=== PATIENT | female | born 1990 | race Caucasian/White ===

== ENCOUNTER → 2018-11-24 | Outpatient (CLI) | payer OTHER, SELFPAY ==
[2018-11-24 16:23] LABS: CRP < 2.90 mg/L (0.0-3.0)
[2018-11-27 16:07] LABS: Endomysial Antibody IgA Negative (Negative); Immunoglobulin A 68 mg/dL (87-352)
[2018-11-28 11:43] LABS: t-Transglutaminase IgA <2 U/mL (0-3)
== END | disposition home or self-care (01) ==
LOC: MTLAB 14:07
PROVIDERS: Family Provider Family Medicine; PCP Family Medicine; Referring Provider Internal Medicine Gastroenterology; Visit Provider Internal Medicine Gastroenterology
DX: R19.7 Diarrhea, unspecified (principal)
CPT/HCPCS: 36415; 82784; 83516; 86140; 86255

== ENCOUNTER → 2018-12-04 | Outpatient (CLI) | payer OTHER, SELFPAY | END | disposition home or self-care (01) | PROVIDERS: Family Provider Family Medicine; PCP Family Medicine; Referring Provider Internal Medicine Gastroenterology; Visit Provider Internal Medicine Gastroenterology | DX: R19.7 Diarrhea, unspecified (principal); R10.9 Unspecified abdominal pain | CPT/HCPCS: 36415 ==

== ENCOUNTER → 2020-02-16 15:51 | Outpatient (CLI) | payer OTHER, SELFPAY ==
--- NOTE | 2020-02-16 15:56 | US_ITS ---
STUDY: ULTRASOUND OF THE FEMALE PELVIS - COMPLETE REASON FOR EXAM: Female, 29 years old. PAIN DURING OVULATION BILAT LMP: 01/31/2020 TECHNIQUE: Transvaginal TECHNICAL QUALITY: Adequate. COMPARISON: None. FINDINGS: The uterus is anteverted and is in a midline position. The uterus measures 8.8 x 5.9 x 4.2 cm. Normal uterine cervix. The endometrium measures 10 mm in thickness, and is hyperechoic. There is no demonstrated endometrial mass. There is no demonstrated myometrial mass. I.U.D. - The patient does not have an I.U.D. The right ovary is visualized. The right ovary measures 3.3 x 3.2 x 2.2 cm. There is no right ovarian cyst or ovarian mass. There is no visualized right adnexal mass or complex lesion. There is normal arterial and normal venous vascularity. The left ovary is visualized. The left ovary measures 3.1 x 2.3 x 2.0 cm. There is no left ovarian cyst or ovarian mass. There is no visualized left adnexal mass or complex lesion. There is normal arterial and normal venous vascularity. There is minimal fluid in the cul-de-sac. The pre void volume of the bladder was ml. The post void volume of the bladder was ml. Polycystic ovary disease: No. US/Transvaginal Non- IMPRESSION: Normal female pelvis. Electronically Signed: Chris Montero MD at 17:12 EDT Tel , Service support ,
== END ==
PROVIDERS: PCP Family Medicine
DX: N94.0 Mittelschmerz (principal)
CPT/HCPCS: 76830

== ENCOUNTER → 2022-01-29 | Outpatient (CLI) | payer OTHER, SELFPAY ==
[2022-01-29 18:21] LABS: Anion Gap 4 (5-15); BUN 13 mg/dL (7-18); BUN/Creat Ratio 15.8 RATIO (10-20); Chloride 108 mmol/L (98-107); Cholesterol 137 mg/dL (200); Creatinine, Serum 0.82 mg/dL (0.55-1.02); EST Glomerular Filtration Rate 85 mL/min (>60); Est Glom Filt Rate - Afr Amer 103 mL/min (>60); Glucose 98 mg/dL (74-106); High Density Lipoprotein 61 mg/dL; Potassium 3.9 mmol/L (3.5-5.1); Sodium Level 139 mmol/L (136-145); Triglycerides 90 mg/dL; Very Low Density Lipoprotein 18 mg/dL (5-40)
== END | disposition home or self-care (01) ==
LOC: MFPLAB 14:37
PROVIDERS: PCP Family Medicine; Visit Provider Family Medicine
DX: Z00.00 Encounter for general adult medical examination without abnormal findings (principal)
CPT/HCPCS: 36415; 80048; 80061

== ENCOUNTER → 2022-09-17 | Outpatient (CLI) | payer OTHER, SELFPAY ==
[2022-09-17 17:57] LABS: Absolute Lymphocyte Count 1.75 X10^3/uL (0.83-4.51); Basophil# 0.03 X10^3/uL; Basophil% 0.6 % (0-1); Eosinophil# 0.04 X10^3/uL; Eosinophils% 0.8 % (0-5); Hematocrit 40.7 % (37-47); Hemoglobin 14.2 g/dL (12.0-15.0); Lymphocyte # 1.75 X10^3/ul (0.83-4.51); Lymphocyte % 33.7 % (19-41); Mean Corp Hgb Conc 34.9 g/dL (32-36); Mean Corpuscular Hgb 31.8 pg (27.0-32.0); Mean Corpuscular Volume 91.1 fL (81-99); Mean Platelet Vol. 10.8 fl (6.2-12.0); Monocyte% 7.7 % (0-10); NRBC Flagged by Analyzer 0 % (0-5); Neutrophil # 2.97 X10^3/uL (2.7-7.7); Platelet Count 244 K/mm3 (150-450); RBC Distribution Width CV 11.9 % (11.6-14.6); RBC Distribution Width SD 39.4 fl (35.1-43.9); Red Blood Count 4.47 M/mm3 (4.2-5.4); White Blood Count 5.2 K/mm3 (4.4-11.0)
[2022-09-17 18:21] LABS: Anion Gap 5 (5-15); BUN 11 mg/dL (7-18); BUN/Creat Ratio 15.4 RATIO (10-20); Chloride 107 mmol/L (98-107); Creatinine, Serum 0.71 mg/dL (0.55-1.02); EST Glomerular Filtration Rate 100 mL/min (>60); Est Glom Filt Rate - Afr Amer 121 mL/min (>60); Glucose 97 mg/dL (74-106); Potassium 3.7 mmol/L (3.5-5.1); Sodium Level 138 mmol/L (136-145)
== END | disposition home or self-care (01) ==
LOC: MFPLAB 16:56
PROVIDERS: PCP Family Medicine; Visit Provider Family Medicine
DX: R20.0 Anesthesia of skin (principal); R20.2 Paresthesia of skin
CPT/HCPCS: 36415; 80048; 85025

== ENCOUNTER 2023-06-25 15:00 | Outpatient (RCR) | payer OTHER, SELFPAY ==
--- NOTE | 2023-04-23 17:48 | HP.PTEVAL_ITS ---
Patient's Visit Information Visit Information Visit Information: NEDRA MAJANO is a 32 year old F referred to Physical Therapy by Dr. Quinn Melton MD with a diagnosis of L biceps tendonitis.. Date of Evaluation: 04/23/23 Physical Therapist: Ivan Monique, DPT, OCS, CSCS Visit Plan Frequency: 1-2x /Week Duration: 4-6 Weeks Plan: weekly to 2x/week as needed for 4-6 for activity modficaiton education and strength of scap and RC, consider increased frequency for US and manual if not improving. next session: prone scap stabs and elevation ex if doing well with phase 3 OTB and hammer theory. Subjective Subjective: L shoulder hurting for a number of months since end of December. No moment of injury. January weighted flyes bothered it. Really bad for a while and could not sleep on L side but that got better. Is L handed. Workout lifting bothers it or carrying heavy things can cause pain. has dtr who might swing arm and hurt it. Anterior L shoulder hurts Doesn't bother her if she does not move it. Lifting heavy hurts. Not up at night anymore. 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 Not really bothersome at work. Hobbies running and hiking, not a problem. Avoids weight lfiting due to shoulder pain , avoids yoga. Pain L shoulder: Pain Intensity (Out of 10): 3 Pain Intensity Range: 0 and 4 Comment: down dog hurt. Objective Objective: l shoulder tenderness at biceps tendon adn supraspinatus tendon mildly. Mild forward protracted scap posture. cervical and scapular AROM is full and painfree as is elbow and wrist on both sides. R shoulder moves well without pain. L shoulder has some mild discomfort transiently at end range of flexion, er. strength is 4- in rotation of B shoulder and elevation with pain with resisted flexion L and ext rotation L. Biceps slight pain to contract L. reflexes 2/3 bi and tri B. Sensation WNL to gross lgiht touch. - ext rotation lag test, - drop arm test, - labral tests, - sulcus tests. Balance/Special Test Scores Quick DASH Score: 6.8175 Goals Goal 1:: Full aROM and flexion, er resistance without pain L shoulder Goal Time Frame: 4-6 Weeks Goal 2:: I appropriate HEP to limit future problems Goal Time Frame: 4-6 Weeks Goal 3:: 5 days without noticing pain in L shoulder Goal Time Frame: 4-6 Weeks Goal 4:: qucikdash score 11 Goal Time Frame: 4-6 Weeks Goal 5:: Pt report 99% back to normal Goal Time Frame: 4-6 Weeks Rehabilitation Potential Physical Therapy Diagnosis: L shoulder pain limiting funciton likely due to impingement tendonitis Rehabilitation Potential: Good Anticipated Interventions Patient/Client Instruction: Educate patient on: Condition and Plan of Care For the Purpose of:: To decrease pain, To improve nutrient delivery to tissue, To improve muscle performance and motor function, To increase tolerance to activity/condition/position and To improve ability of physical actions for home/community/work/leisure Therapeutic Exercise to Include: Strength training, Postural training, Flexibilty training, Passive ROM and Scapular Strength/Stabilization For the Purpose of:: To decrease pain, To increase ROM, To improve nutrient delivery to tissue, To improve muscle performance and motor function, To increase tolerance to activity/condition/position and To improve ability of physical actions for home/community/work/leisure Manual Therapy Techniques to Include: Mobilization, Passive ROM and Soft tissue mobilization For the Purpose of:: To increase ROM, To improve nutrient delivery to tissue and To improve muscle performance and motor function Cryotherapy (ice pack, ice massage): Yes Ultrasound (thermal/non thermal): Yes (nonthermal as needed.) For the Purpose of:: To decrease pain and To decrease swelling/inflammation Text: Thank you for the opportunity to evaluate your patient. For Medicare and Medicare HMO plans, please review the plan of care and approve it. It will need to be FAXED BACK to us at [phone] for Medicare purposes. For Medicare only, by signing this I certify the plan of care. Please let me know if there are questions or concerns regarding this plan of care. Physician Signature: Date:
--- NOTE | 2023-06-25 15:44 | HP.PTDCSUM ---
Discharge Summary D/C summary: It has been my pleasure to treat NEDRA MAJANO referred by Dr. Quinn Melton MD, with the diagnosis of L biceps tendonitis. for a total of 5 visit(s). Discharge Date: 06/25/23 Please see the following information for a summary of their discharge status. Subjective Subjective: Doing well took a week for pain to go away after plyo pushups but getting back there now and progressing db exercises slower. Not much pain lately. Pain L shoulder: Pain Intensity (Out of 10): 0 Overall Improvement % Improvement: 85 Objective Objective/Function: Full aROM B shoulders, still some mild tenderness L supraspinatus but much better. No pain with AROM. strength is symmetrical in neutral position, slightly painful after a few attempts with er but otherwise er, ir, flex, abd are all OK Goals Goal 1:: Full aROM and flexion, er resistance without pain L shoulder Goal Progress: Goal Met Goal 2:: I appropriate HEP to limit future problems Goal Progress: Goal Met Goal 3:: 5 days without noticing pain in L shoulder Goal Progress: Progressing Goal 4:: qucikdash score 11 Goal Progress: Goal Met Goal 5:: Pt report 99% back to normal Goal Progress: Progressing Plan Plan: d/c to HEP D/C Information Discharge Comments: Pt to continue via HEP. d/c sentence: If there are questions or concerns regarding this patient's physical therapy, please feel free to call me at [phone]. Thank you for the referral of this patient. Sincerely, Ivan Monique, DPT, OCS, CSCS Balance/Gait/Functional tests Balance/Special Test Scores Quick DASH Score: 6.8175 Improvement % Improvement: 85
== END 2023-06-25 19:00 | disposition home or self-care (01) ==
LOC: PT 15:00
PROVIDERS: PCP Family Medicine; Referring Provider Family Medicine; Visit Provider Family Medicine
DX: M75.22 Bicipital tendinitis, left shoulder (principal)
CPT/HCPCS: 97110; 97161; 97164

== ENCOUNTER → 2025-02-12 | Outpatient (CLI) | payer OTHER, SELFPAY ==
--- OUTSIDE RECORDS SUMMARY | 2025-02-12 06:06 | XMS RPT_ITS | CCD ---
Author Organization [facility] CliniSyva Care Team Providers Care Solar Panel Installation Supervisor Name Role Phone DODIE DESOUZA A Unavailable Unavailable MENDOZA, QUINN Harris Unavailable Unavailable DESOUZA, DODIE A Unavailable Unavailable MENDOZA, QUINN Harris Unavailable Unavailable DESOUZA, DODIE A Unavailable Unavailable MENDOZA, QUINN Harris Unavailable Unavailable DESOUZA, DODIE A Unavailable Unavailable MENDZOA, QUINN Harris Unavailable Unavailable DESOUZA, DODIE A Unavailable Unavailable MENDOZA, QUINN Harris Unavailable Unavailable LYLY, DODIE A Unavailable Unavailable MENDOZA, QUINN Harris Unavailable Unavailable DODIE DESOUZA A Unavailable Unavailable Mendoza, Quinn Attending Unavailable Mendoza, Quinn Primary Care Unavailable Mendoza, Quinn Referring Unavailable Mendoza, Quinn Attending Unavailable Mendoza, Quinn Primary Care Unavailable MAICO GREEN Attending Unavailable MAICO GREEN Primary Care Unavailable MAICO GREEN Admitting Unavailable REJI AGUIRRE, DR QUINN Santillan Primary Care Physician [phone] REJI AGUIRRE, DR QUINN Santillan Primary Care Unavailkevin LECHUGA APRN-CARLA HOLT Attending Ale cruz Allergies Allergy Classification Reported Allergen(s) Allergy Type Date of Onset Reaction(s) Facility (1 source) Doxycycline; Translations: [doxycycline] Drug Allergy [facility] Medications Current Medications Medication Drug Class(es) Dates Sig (Normalized) Sig (Original) ibuprofen 600 mg oral tablet (1 source) Nonsteroidal Anti-inflammatory Drug Start: 05-30-2018 ibuprofen 600 mg oral tablet Dose : 600 mg = 1 tab(s), Oral, q6h, 0 Refill(s) Start Date: 05/30/18 Status: Ordered Repeat number: 1 [facility] (1 source) Start: 05-30-2018 [facility] 7 = gram(s) Apply 1 EA, Topical, AsDirected, PRN Other (see order comments), 0 Refill(s), Ointment Start Date: 05/30/18 Status: Ordered Repeat number: 1 Multivitamins (1 source) Start: 05-25-2016 Multivitamins Oral, qDay, 0 Refill(s) Start Date: 05/25/16 Status: Ordered Repeat number: 1 Problems Active Problems Problem Classification Problem Date Documented Da te Episodic/Chronic Unclassified (1 source) Breast feeding (infant) (observable entity) 05-24-2016 Comment on above: System added from do cumentation. Breast feeding Status documented as Yes on Admission Past or Other Problems Problem Classification Problem Date Documented Da te Episodic/Chronic Other nervous system disorders (1 source) Anesthesia of skin; Translations: [Anesthesia of skin] Onset: 09-21-2022 Episodic Results Test Name Value Interpretation Reference Range Facility MA MAMMOGRAM SCREENING BILAT ERAL W/TOMOon 12-24-2024 MA MAMMOGRAM SCREENING BILATERAL W/RAHEEL ORIGINAL FROM: [place] [id number] PROCEDURE FOR: NEDRA MAJANO [address] [place] [address] Home: PID#: [id number] Exam#: [id number] : 1990 Age: 34 TO: CARLA [place] [address] EXAMINATION: SCREENING DIGITAL BILATERAL MAMMOGRAM WITH TOMOSYNTHESIS, 12/24/2024 10:24 am TECHNIQUE: Screening mammography of the bilateral breasts was performed with tomosynthesis. 2D standard and 3D tomosynthesis combination imaging performed through both breasts in the MLO and CC projection. Computer aided detection was utilized in the interpretation of this exam. COMPARISON: Baseline. HISTORY: Baseline breast cancer screening. FINDINGS: BREAST DENSITY: The breasts are extremely dense, which lowers the sensitivity of mammography. There are no significant masses or calcifications. IMPRESSION: No mammographic evidence of malignancy. Return to annual screening mammography is recommended.. Nuvia Najera risk calculations, generated with the history provided, report this patient's 10 year risk and lifetime risk for developing breast cancer at 2.0% and 25.6%, respectively. Based on this assessment tool, if the patient's calculated lifetime risk is below 20%, then the patient is considered at average risk for developing breast cancer. If the patient's calculated lifetime risk is at or above 20%, then the patient is considered high risk for developing breast cancer and may be a candidate for supplemental breast MRI screening in addition to annual mammographic screening per the [place] [employer]. I have personally reviewed the images of this examination and agree with the resident's findings and interpretation. BIRADS: BI-RADS: 1: Negative RECALL: 1 year screening RECALL TYPE: mammo LETTER SENT: Normal BI-RADS 1 and 2 Interpreted by: Li Shepherd Preliminary Report By: Jean Mock Electronically signed By Li Shepherd Dictated Date: 12/24/2024 11:08:11 AM Prelim Date: 12/24/2024 5:02:05 PM Sign Date: 12/24/2024 5:02:05 PM Ordering Provider: CARLA LECHUGA Interpreted by: Li Shepherd Preliminary Report By: Jean Mock Electronically signed By Li Shepherd Dictated Date: 12/24/2024 11:08:11 AM Prelim Date: 12/24/2024 5:02:05 PM Sign Date: 12/24/2024 5:02:05 PM Ordering Provider: CARLA LECHUGA Air Traffic Systems Technician: MEEK FARMER RT (R, CT), [facility] letter sent: Normal BI-RADS 1 and 2 Mammogram BI-RADS: 1 Negative Normal [facility] Inital Evaluation (1) - [facility] 04-23-2023 Inital Evaluation (1) - PT [facility] Physical Therapy [facility] [place] [address] / REHABILITATION SERVICES INITIAL EVALUATION MR#: [id number] Acct: [id number] Name: NEDRA MAJANO Rep #: [id number] : 1990 32 From: Jeni Monique DPT, OCS, CSCS Referring Dr.: Dr. Quinn Mendoza MD Status: REG RCR Insurance: [facility] SELF PAY INSURANCE Patient's Visit Information Visit Information Visit Information: NEDRA MAJANO is a 32 year old F referred to Physical Therapy by Dr. Quinn Mendoza MD with a diagnosis of L biceps tendonitis.. Date of Evaluation: 04/23/23 Physical Therapist: Jeni Monique, MINAT, OCS, CSCS Visit Plan Frequency: 1-2x /Week Duration: 4-6 Weeks Plan: weekly to 2x/week as needed for 4-6 for activity modficaiton education and strength of scap and RC, consider increased frequency for US and manual if not improving. next session: prone scap stabs and elevation ex if doing well with phase 3 OTB and hammer theory. Subjective Subjective: L shoulder hurting for a number of months since end of December. No moment of injury. January weighted flyes bothered it. Really bad for a while and could not sleep on L side but that got better. Is L handed. Workout lifting bothers it or carrying heavy things can cause pain. has dtr who might swing arm and hurt it. Anterior L shoulder hurts Doesn't bother her if she does not move it. Lifting heavy hurts. Not up at night anymore. 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 Not really bothersome at work. Hobbies running and hiking, not a problem. Avoids weight lfiting due to shoulder pain , avoids yoga. Pain L shoulder: Pain Intensity (Out of 10): 3 Pain Intensity Range: 0 and 4 Comment: down dog hurt. Objective Objective: l shoulder tenderness at biceps tendon adn supraspinatus tendon mildly. Mild forward protracted scap posture. cervical and scapular AROM is full and painfree as is elbow and wrist on both sides. R shoulder moves well without pain. L shoulder has some mild discomfort transiently at end range of flexion, er. strength is 4- in rotation of B shoulder and elevation with pain with resisted flexion L and ext rotation L. Biceps slight pain to contract L. reflexes 2/3 bi and tri B. Sensation WNL to gross lgiht touch. - ext rotation lag test, - drop arm test, - labral tests, - sulcus tests. Balance/Special Test Scores Quick DASH Score: 6.8175 Goals Goal 1:: Full aROM and flexion, er resistance without pain L shoulder Goal Time Frame: 4-6 Weeks Goal 2:: I appropriate HEP to limit future problems Goal Time Frame: 4-6 Weeks Goal 3:: 5 days without noticing pain in L shoulder Goal Time Frame: 4-6 Weeks Goal 4:: qucikdash score 11 Goal Time Frame: 4-6 Weeks Goal 5:: Pt report 99% back to normal Goal Time Frame: 4-6 Weeks Rehabilitation Potential Physical Therapy Diagnosis: L shoulder pain limiting funciton likely due to impingement tendonitis Rehabilitation Potential: Good Anticipated Interventions Patient/Client Instruction: Educate patient on: Condition and Plan of Care For the Purpose of:: To decrease pain, To improve nutrient delivery to tissue, To improve muscle performance and motor function, To increase tolerance to activity/condition/p osition and To improve ability of physical actions for home/community/work/ leisure Therapeutic Exercise to Include: Strength training, Postural training, Flexibilty training, Passive ROM and Scapular Strength/Stabilizati on For the Purpose of:: To decrease pain, To increase ROM, To improve nutrient delivery to tissue, To improve muscle performance and motor function, To increase tolerance to activity/condition/p osition and To improve ability of physical actions for home/community/work/ leisure Manual Therapy Techniques to Include: Mobilization, Passive ROM and Soft tissue mobilization For the Purpose of:: To increase ROM, To improve nutrient delivery to tissue and To improve muscle performance and motor function Cryotherapy (ice pack, ice massage): Yes Ultrasound (thermal/non thermal): Yes (nonthermal as needed.) For the Purpose of:: To decrease pain and To decrease swelling/inflammatio n Text: Thank you for the opportunity to evaluate your patient. For Medicare and Medicare HMO plans, please review the plan of care and approve it. It will need to be FAXED BACK to us at [phone] for Medicare purposes. For Medicare only, by signing this I certify the plan of care. Please let me know if there are questions or concerns regarding this plan of care. Physician Signature: D ate: 04/23/23 1748 CC: Dr. Quinn Mendoza MD EBG Signed Normal [facility] Basic Metabolic Profile (BMP )on 09-17-2022 BUN/CRE 15.4 RATIO Normal 10-20 [facility] Comment on above: Performed By: #### L 100.0100, L500.2500 #### [facility] [address] [place], [address] CA,Total 9.0 mg/dL Normal 8.5-10.1 [facility] Comment on above: Performed By: #### L 100.0100, L500.2500 #### [facility] [address] [place], [address] Chloride [Moles/Vol] 107 mmol/L Normal 98-107 [facility] Comment on above: Performed By: #### L 100.0100, L500.2500 #### [facility] [address] [place], [address] CO2 [Moles/Vol] 26.0 mmol/L Normal 21.0-32.0 [facility] Comment on above: Performed By: #### L 100.0100, L500.2500 #### [facility] [address] [place], [address] Creatinine [Mass/Vol] 0.71 mg/dL Normal 0.55-1.02 [facility] Comment on above: Result Comment: The validity of the calculated GFR GFRAA in patients over 70 years has not been determined. Clinical correlation is essential. Performed By: #### L 100.0100, L500.2500 #### [facility] [address] [place], [address] EST GFR - AA 121 mL/min Normal >60 [facility] Comment on above: Result Comment: Afri can [place] GFR Calc Performed By: #### L 100.0100, L500.2500 #### [facility] [address] [place], [address] GAP 5 Normal 5-15 [facility] Comment on above: Performed By: #### L 100.0100, L500.2500 #### [facility] [address] [place], [address] GFR/1.73 sq M.predicted among non-blacks MDRD (S/P/Bld) [Vol rate/Area] 100 mL/min/{1.73_m2} Normal >60 [facility] Comment on above: Result Comment: Non- GFR Calc Performed By: #### L 100.0100, L500.2500 #### [facility] [address] [place], [address] Glucose [Mass/Vol] 97 mg/dL Normal 74-106 [facility] Comment on above: Performed By: #### L 100.0100, L500.2500 #### [facility] [address] [place], [address] Potassium [Moles/Vol] 3.7 mmol/L Normal 3.5-5.1 [facility] Comment on above: Performed By: #### L 100.0100, L500.2500 #### [facility] [address] [place], [address] Sodium [Moles/Vol] 138 mmol/L Normal 136-145 [facility] Comment on above: Performed By: #### L 100.0100, L500.2500 #### [facility] [address] [place], [address] Urea nitrogen [Mass/Vol] 11 mg/dL Normal 7-18 [facility] Comment on above: Performed By: #### L 100.0100, L500.2500 #### [facility] [address] [place], [address] CBC W/Diff, Automatedon 03- Absolute Lymph 1.75 X10 3/uL Normal 0.83-4.51 [facility] Comment on above: Performed By: #### L 100.0100, L500.2500 #### [facility] [address] [place], [address] Absolute Neut 3.0 X10 3/uL Normal 2.0-7.7 [facility] Comment on above: Performed By: #### L 100.0100, L500.2500 #### [facility] [address] [place], [address] Basophils/100 WBC (Bld) 0.6 % Normal 0-1 [facility] Comment on above: Performed By: #### L 100.0100, L500.2500 #### [facility] [address] [place], [address] Eosinophils/100 WBC (Bld) 0.8 % Normal 0-5 [facility] Comment on above: Performed By: #### L 100.0100, L500.2500 #### [facility] [address] [place], [address] Erythrocyte distribution width (RBC) [Ratio] 11.9 % Normal 11.6-14.6 [facility] Comment on above: Performed By: #### L 100.0100, L500.2500 #### [facility] [address] [place], [address] Hematocrit (Bld) [Volume fraction] 40.7 % Normal 37-47 [facility] Comment on above: Performed By: #### L 100.0100, L500.2500 #### [facility] [address] [place], [address] Hemoglobin (Bld) [Mass/Vol] 14.2 g/dL Normal 12.0-15.0 [facility] Comment on above: Performed By: #### L 100.0100, L500.2500 #### [facility] [address] [place], [address] IG% 0.200 Normal 0.0-0.9 [facility] Comment on above: Result Comment: IG% - Immature Granulocytes (promyelocytes, myelocytes and metamyelocytes) > 1% indicates that a LEFT SHIFT is Present. Performed By: #### L 100.0100, L500.2500 #### [facility] [address] [place], [address] Lymphocytes/100 WBC (Bld) 33.7 % Normal 19-41 [facility] Comment on above: Performed By: #### L 100.0100, L500.2500 #### [facility] [address] [place], [address] MCH (RBC) [Entitic mass] 31.8 pg Normal 27.0-32.0 [facility] Comment on above: Performed By: #### L 100.0100, L500.2500 #### [facility] [address] [place], [address] MCHC (RBC) [Mass/Vol] 34.9 g/dL Normal 32-36 [facility] Comment on above: Performed By: #### L 100.0100, L500.2500 #### [facility] [address] [place], [address] MCV (RBC) [Entitic vol] 91.1 fL Normal 81-99 [facility] Comment on above: Performed By: #### L 100.0100, L500.2500 #### [facility] [address] [place], [address] Monocytes/100 WBC (Bld) 7.7 % Normal 0-10 [facility] Comment on above: Performed By: #### L 100.0100, L500.2500 #### [facility] [address] [place], [address] Neutrophils/100 WBC (Bld) 57.0 % Normal 47-70 [facility] Comment on above: Performed By: #### L 100.0100, L500.2500 #### [facility] [address] [place], [address] Nucleated RBC (Bld) [#/Vol] 0 10*3/uL Normal 0-5 [facility] Comment on above: Performed By: #### L 100.0100, L500.2500 #### [facility] [address] [place], [address] Platelet mean volume (Bld) [Entitic vol] 10.8 fL Normal 6.2-12.0 [facility] Comment on above: Performed By: #### L 100.0100, L500.2500 #### [facility] [address] [place], [address] Platelets (Bld) [#/Vol] 244 10*3/uL Normal 150-450 [facility] Comment on above: Performed By: #### L 100.0100, L500.2500 #### [facility] [address] [place], [address] RBC (Bld) [#/Vol] 4.47 10*6/uL Normal 4.2-5.4 [facility] Comment on above: Performed By: #### L 100.0100, L500.2500 #### [facility] [address] [place], [address] RDW SD 39.4 fl Normal 35.1-43.9 [facility] Comment on above: Performed By: #### L 100.0100, L500.2500 #### [facility] [address] [place], [address] WBC (Bld) [#/Vol] 5.2 10*3/uL Normal 4.4-11.0 [facility] Comment on above: Performed By: #### L 100.0100, L500.2500 #### [facility] [address] [place], [address] Basophil percentageon 2021 Chloride [Moles/Vol] 108 mmol/L 98-107 [facility] Work Phone: Cholesterol [Mass/Vol] 137 mg/dL <200 [facility] Work Phone: Comment on above: <200 mg/dL Desirable 200-240 mg/dL Borderline >240 mg/dL High Risk Glucose [Mass/Vol] 98 mg/dL 74-106 [facility] Work Phone: Potassium [Moles/Vol] 3.9 mmol/L 3.5-5.1 [facility] Work Phone: Sodium [Moles/Vol] 139 mmol/L 136-145 [facility] Work Phone: Triglyceride [Mass/Vol] 90 mg/dL <199 [facility] Work Phone: Comment on above: The drugs N-Acetylcy steine and Metamizole may falsely depress this assay.Serum Triglycerides Reference Interval Normal <150 mg/dL Borderline high 150 - 199 mg/dL High 200 - 499 mg/dL Very High > or = 500 mg/dL Laboratory - Chemistry and C hemistry - challengeon 01-29-2022 CO2 [Moles/Vol] 27.0 mmol/L 21.0-32.0 [facility] Work Phone: Urea nitrogen/Creatinin e [Mass ratio] 15.8 mg/mg 10-20 [facility] Work Phone: No Panel Informationon 01-29 Estimated GFR (MDRD) Amer 103 mL/min >60 [facility] Work Phone: Comment on above: GFR Calc Estimated GFR (MDRD) Non-Af Amer 85 mL/min >60 [facility] Work Phone: Comment on above: Non- GFR Calc Serum or plasma calcium leila urement (mass/volume)on 01-29-2022 Calcium [Mass/Vol] 9.0 mg/dL 8.5-10.1 [facility] Work Phone: Serum or plasma cholesterol in HDL measurement (mass/volume)on 01-29-2022 Cholesterol in HDL [Mass/Vol] 61 mg/dL >40 [facility] Work Phone: Comment on above: The drugs N-Acetylcy steine and Metamizole may falsely depress this assay. Reference Range HDL <40 mg/dL Low HDL Cholesterol HDL >or= 60 mg/dL High HDL Cholesterol Serum or plasma cholesterol in VLDL measurement (mass/volume)on 01-29-2022 Cholesterol in VLDL [Mass/Vol] 18 mg/dL 5-40 [facility] Work Phone: Serum or plasma creatinine m easurement (mass/volume)on 01-29-2022 Creatinine [Mass/Vol] 0.82 mg/dL 0.55-1.02 [facility] Work Phone: Comment on above: The validity of the calculated GFR & GFRAA in patients over 70 years has not been determined. Clinical correlation is essential. Serum or plasma low density lipoprotein (LDL) cholesterol measurement (mass/volume)on 01-29-2022 Cholesterol in LDL [Mass/Vol] 58 mg/dL 0-130 [facility] Work Phone: Serum or plasma urea nitroge n measurement (mass/volume)on 01-29-2022 Urea nitrogen [Mass/Vol] 13 mg/dL 7-18 [facility] Work Phone: Thin prep Papanicolaou smear with manual screeningon 01-29-2022 Thin prep Papanicolaou smear with manual screening 4 5-15 [facility] Work Phone: B. burgdorferi IgG and IgM p anabelle (S)on 01-22-2022 B. burgdorferi IgG+IgM Qn (S) Negative Normal Negative [facility] Comment on above: Order Comment: Speci men Type: BLOOD SPECIMEN Ordering Facility: [facility] Address: [address] [place] [address] Result Comment: Rece nt infection with B. burgdorferi sensu lato cannot be excluded if the specimen collected within four weeks after the onset of signs and symptoms or within six weeks after a known tick exposure. Clinical and epidemiological correlation is required. Performed By: #### 3 4942-3 #### [facility] CLIA [id number] [address] [place] [address] [place] Gel ABOon 05-29-2018 ABO/Rh Interp Positive Invalid Interpretation Code [facility] ([place]) Comment on above: Performed By: #### C BC, ADIFF, ANEU, TSH, ABOG, ANSG ####[place] [address] [place] [address]#### HBSAG, RUBIS, RPR, VARIS ####[place] [address] Gel ABSon 05-29-2018 Antibody Screen Gel Negative Normal [facility] ([place]) Comment on above: Performed By: #### C BC, ADIFF, ANEU, TSH, ABOG, ANSG ####[place] [address]#### HBSAG, RUBIS, RPR, VARIS ####[place] [address] HHon 05-29-2018 Hematocrit Auto Volume Fraction (Bld) 36.3 % Low 37.0-47.0 [facility] ([place]) Comment on above: Performed By: #### C BC, ADIFF, ANEU, TSH, ABOG, ANSG ####[place] [address]#### HBSAG, RUBIS, RPR, VARIS ####[place] [address] Hemoglobin mass conc (Bld) 12.2 G/dL Normal 12.0-16.0 [facility] ([place]) Comment on above: Performed By: #### C BC, ADIFF, ANEU, TSH, ABOG, ANSG ####[place] [address]#### HBSAG, RUBIS, RPR, VARIS ####[place] [address] .Auto Diffon 05-28-2018 Ammonia mass conc (P) 0.70 10 3/mcL Normal 0.15-1.00 [facility] ([place]) Comment on above: Performed By: #### C BC, ADIFF, ANEU, TSH, ABOG, ANSG ####[place] [address]#### HBSAG, RUBIS, RPR, VARIS ####[address] [address] Basophils Auto #/vol (Bld) 0.00 10 3/mcL Normal 0.00-0.19 [facility] ([place]) Comment on above: Performed By: #### C BC, ADIFF, ANEU, TSH, ABOG, ANSG ####[place] [address]#### HBSAG, RUBIS, RPR, VARIS ####[address] [address] Basophils/100 WBC Auto (Bld) 0.4 % Normal 0.0-2.5 [facility] ([place]) Comment on above: Performed By: #### C BC, ADIFF, ANEU, TSH, ABOG, ANSG ####[place] [address]#### HBSAG, RUBIS, RPR, VARIS ####[address] [address] Eosinophils Auto #/vol (Bld) 0.00 10 3/mcL Normal 0.00-0.40 [facility] ([place]) Comment on above: Performed By: #### C BC, ADIFF, ANEU, TSH, ABOG, ANSG ####[place] [address]#### HBSAG, RUBIS, RPR, VARIS ####[address] [address] Eosinophils/100 WBC Auto (Bld) 0.4 % Normal 0.0-7.0 [facility] ([place]) Comment on above: Performed By: #### C BC, ADIFF, ANEU, TSH, ABOG, ANSG ####[place] [address]#### HBSAG, RUBIS, RPR, VARIS ####[address] [address] Lymphocytes Auto #/vol (Bld) 1.70 10 3/mcL Normal 0.77-3.85 [facility] ([place]) Comment on above: Performed By: #### C BC, ADIFF, ANEU, TSH, ABOG, ANSG ####[place] [address]#### HBSAG, RUBIS, RPR, VARIS ####[address] [address] Lymphocytes/100 WBC Auto (Bld) 18.2 % Normal 10.0-50.0 [facility] ([place]) Comment on above: Performed By: #### C BC, ADIFF, ANEU, TSH, ABOG, ANSG ####[place] [address]#### HBSAG, RUBIS, RPR, VARIS ####[address] [address] Monocytes/100 WBC Auto (Bld) 7.3 % Normal 1.7-13.0 [facility] ([place]) Comment on above: Performed By: #### C BC, ADIFF, ANEU, TSH, ABOG, ANSG ####[place] [address]#### HBSAG, RUBIS, RPR, VARIS ####[address] [address] Neutrophils/100 WBC Auto (Bld) 73.7 % Normal 37.0-80.0 [facility] ([place]) Comment on above: Performed By: #### C BC, ADIFF, ANEU, TSH, ABOG, ANSG ####[place] [address]#### HBSAG, RUBIS, RPR, VARIS ####[address] [address] .NEUABSon 05-28-2018 Neutrophil, Absolute 6.80 10 3/mcL High 2.85-6.16 [facility] [facility] ([place] Comment on above: Performed By: #### C BC, ADIFF, ANEU, TSH, ABOG, ANSG ####[place] [address]#### HBSAG, RUBIS, RPR, VARIS ####[place] [address] CBCon 05-28-2018 Erythrocyte distribution width Auto Ratio (RBC) 19.3 % High 11.5-14.5 [facility] ([place]) Comment on above: Performed By: #### C BC, ADIFF, ANEU, TSH, ABOG, ANSG ####[place] [address]#### HBSAG, RUBIS, RPR, VARIS ####[place] [address] Hematocrit Auto Volume Fraction (Bld) 38.4 % Normal 37.0-47.0 [facility] ([place] Comment on above: Performed By: #### C BC, ADIFF, ANEU, TSH, ABOG, ANSG ####[place] [address]#### HBSAG, RUBIS, RPR, VARIS ####[place] [address] Hemoglobin mass conc (Bld) 13.2 G/dL Normal 12.0-16.0 [facility] ([place] Comment on above: Performed By: #### C BC, ADIFF, ANEU, TSH, ABOG, ANSG ####[place] [address]#### HBSAG, RUBIS, RPR, VARIS ####[place] [address] MCH Auto Entitic mass (RBC) 30.8 pg Normal 27.0-31.2 [facility] ([place] Comment on above: Performed By: #### C BC, ADIFF, ANEU, TSH, ABOG, ANSG ####[place] [address]#### HBSAG, RUBIS, RPR, VARIS ####[place] [address] MCHC Auto mass conc (RBC) 34.3 G/dL Normal 33.0-37.0 [facility] ([place] Comment on above: Performed By: #### C BC, ADIFF, ANEU, TSH, ABOG, ANSG ####[place] [address]#### HBSAG, RUBIS, RPR, VARIS ####[place] [address] MCV Auto Entitic volume (RBC) 89.9 fL Normal 80.0-94.0 [facility] ([place] Comment on above: Performed By: #### C BC, ADIFF, ANEU, TSH, ABOG, ANSG ####[place] [address]#### HBSAG, RUBIS, RPR, VARIS ####[place] [address] Platelet mean volume Auto Entitic volume (Bld) 8.9 fL Normal 7.4-10.4 [facility] ([place] Comment on above: Performed By: #### C BC, ADIFF, ANEU, TSH, ABOG, ANSG ####[place] [address]#### HBSAG, RUBIS, RPR, VARIS ####[place] [address] Platelets Auto #/vol (Bld) 169 10 3/mcL Normal 130-400 [facility] ([place] Comment on above: Performed By: #### C BC, ADIFF, ANEU, TSH, ABOG, ANSG ####[place] [address]#### HBSAG, RUBIS, RPR, VARIS ####[place] [address] RBC Auto #/vol (Bld) 4.27 10 6/mcL Normal 4.20-5.40 [facility] ([place] Comment on above: Performed By: #### C BC, ADIFF, ANEU, TSH, ABOG, ANSG ####[place] [address]#### HBSAG, RUBIS, RPR, VARIS ####[place] [address] WBC Auto #/vol (Bld) 9.20 10 3/mcL Normal 4.60-10.80 [facility] ([place] Comment on above: Performed By: #### C BC, ADIFF, ANEU, TSH, ABOG, ANSG ####[place] [address]#### HBSAG, RUBIS, RPR, VARIS ####[place] [address] .Auto Diffon 04-17-2018 Ammonia mass conc (P) 0.70 10 3/mcL Normal 0.15-1.00 [facility] ([place]) Comment on above: Performed By: #### C BC, ADIFF, ANEU, TSH, ABOG, ANSG ####[place] [address]#### HBSAG, RUBIS, RPR, VARIS ####[place] [address] Basophils Auto #/vol (Bld) 0.00 10 3/mcL Normal 0.00-0.19 [facility] ([place] Comment on above: Performed By: #### C BC, ADIFF, ANEU, TSH, ABOG, ANSG ####[place] [address]#### HBSAG, RUBIS, RPR, VARIS ####[place] [address] Basophils/100 WBC Auto (Bld) 0.3 % Normal 0.0-2.5 [facility] ([place] Comment on above: Performed By: #### C BC, ADIFF, ANEU, TSH, ABOG, ANSG ####[place] [address]#### HBSAG, RUBIS, RPR, VARIS ####[address] [address] Eosinophils Auto #/vol (Bld) 0.10 10 3/mcL Normal 0.00-0.40 [facility] ([place] Comment on above: Performed By: #### C BC, ADIFF, ANEU, TSH, ABOG, ANSG ####[place] [address]#### HBSAG, RUBIS, RPR, VARIS ####[address] [address] Eosinophils/100 WBC Auto (Bld) 1.0 % Normal 0.0-7.0 [facility] ([place]) Comment on above: Performed By: #### C BC, ADIFF, ANEU, TSH, ABOG, ANSG ####[place] [address]#### HBSAG, RUBIS, RPR, VARIS ####[address] [address] Lymphocytes Auto #/vol (Bld) 2.00 10 3/mcL Normal 0.77-3.85 [facility] ([place]) Comment on above: Performed By: #### C BC, ADIFF, ANEU, TSH, ABOG, ANSG ####[place] [address]#### HBSAG, RUBIS, RPR, VARIS ####[address] [address] Lymphocytes/100 WBC Auto (Bld) 23.8 % Normal 10.0-50.0 [facility] ([place] Comment on above: Performed By: #### C BC, ADIFF, ANEU, TSH, ABOG, ANSG ####[place] [address]#### HBSAG, RUBIS, RPR, VARIS ####[address] [address] Monocytes/100 WBC Auto (Bld) 8.2 % Normal 1.7-13.0 [facility] ([place] Comment on above: Performed By: #### C BC, ADIFF, ANEU, TSH, ABOG, ANSG ####[place] [address]#### HBSAG, RUBIS, RPR, VARIS ####[place] [address] Neutrophils/100 WBC Auto (Bld) 66.7 % Normal 37.0-80.0 [facility] ([place] Comment on above: Performed By: #### C BC, ADIFF, ANEU, TSH, ABOG, ANSG ####[place] [address]#### HBSAG, RUBIS, RPR, VARIS ####[place] [address] .NEUABSon 04-17-2018 Neutrophil, Absolute 5.70 10 3/mcL Normal 2.85-6.16 [facility] ([place] Comment on above: Performed By: #### C BC, ADIFF, ANEU, TSH, ABOG, ANSG ####[place] [address]#### HBSAG, RUBIS, RPR, VARIS ####[place] [address] CBCon 04-17-2018 Erythrocyte distribution width Auto Ratio (RBC) 12.8 % Normal 11.5-14.5 [facility] ([place] Comment on above: Performed By: #### C BC, ADIFF, ANEU, TSH, ABOG, ANSG ####[place] [address]#### HBSAG, RUBIS, RPR, VARIS ####[place] [address] Hematocrit Auto Volume Fraction (Bld) 30.4 % Low 37.0-47.0 [facility] ([place] Comment on above: Performed By: #### C BC, ADIFF, ANEU, TSH, ABOG, ANSG ####[place] [address]#### HBSAG, RUBIS, RPR, VARIS ####[place] [address] Hemoglobin mass conc (Bld) 10.4 G/dL Low 12.0-16.0 [facility] ([place]) Comment on above: Performed By: #### C BC, ADIFF, ANEU, TSH, ABOG, ANSG ####[place] [address]#### HBSAG, RUBIS, RPR, VARIS ####[place] [address] MCH Auto Entitic mass (RBC) 29.5 pg Normal 27.0-31.2 [facility] ([place]) Comment on above: Performed By: #### C BC, ADIFF, ANEU, TSH, ABOG, ANSG ####[place] [address]#### HBSAG, RUBIS, RPR, VARIS ####[place] [address] MCHC Auto mass conc (RBC) 34.2 G/dL Normal 33.0-37.0 [facility] ([place]) Comment on above: Performed By: #### C BC, ADIFF, ANEU, TSH, ABOG, ANSG ####[place] [address]#### HBSAG, RUBIS, RPR, VARIS ####[place] [address] MCV Auto Entitic volume (RBC) 86.3 fL Normal 80.0-94.0 [facility] ([place]) Comment on above: Performed By: #### C BC, ADIFF, ANEU, TSH, ABOG, ANSG ####[place] [address]#### HBSAG, RUBIS, RPR, VARIS ####[place] [address] Platelet mean volume Auto Entitic volume (Bld) 9.2 fL Normal 7.4-10.4 [facility] ([place]) Comment on above: Performed By: #### C BC, ADIFF, ANEU, TSH, ABOG, ANSG ####[place] [address]#### HBSAG, RUBIS, RPR, VARIS ####[place] [address] Platelets Auto #/vol (Bld) 212 10 3/mcL Normal 130-400 [facility] ([place]) Comment on above: Performed By: #### C BC, ADIFF, ANEU, TSH, ABOG, ANSG ####[place] [address]#### HBSAG, RUBIS, RPR, VARIS ####[place] [address] RBC Auto #/vol (Bld) 3.53 10 6/mcL Low 4.20-5.40 [facility] ([place] Comment on above: Performed By: #### C BC, ADIFF, ANEU, TSH, ABOG, ANSG ####[place] [address]#### HBSAG, RUBIS, RPR, VARIS ####[place] [address] WBC Auto #/vol (Bld) 8.60 10 3/mcL Normal 4.60-10.80 [facility] ([place] Comment on above: Performed By: #### C BC, ADIFF, ANEU, TSH, ABOG, ANSG ####[place] [address]#### HBSAG, RUBIS, RPR, VARIS ####[place] [address] [id number] 03-06-2018 Glucose mass conc 134 mg/dL Normal 70-140 [facility] ([place] Comment on above: Performed By: #### C BC, ADIFF, ANEU, TSH, ABOG, ANSG ####[place] [address]#### HBSAG, RUBIS, RPR, VARIS ####[place] [address] HHon 03-06-2018 Hematocrit Auto Volume Fraction (Bld) 30.3 % Low 37.0-47.0 [facility] ([place] Comment on above: Performed By: #### C BC, ADIFF, ANEU, TSH, ABOG, ANSG ####[place] [id number] [place] [address]#### HBSAG, RUBIS, RPR, VARIS ####[place] [address] Hemoglobin mass conc (Bld) 11.0 G/dL Low 12.0-16.0 [facility] ([place] Comment on above: Performed By: #### C BC, ADIFF, ANEU, TSH, ABOG, ANSG ####[place] [id number] [place] [address]#### HBSAG, RUBIS, RPR, VARIS ####[place] [address] VARISon 11-29-[address] Positive Normal [facility] ([place]) Comment on above: Result Comment: This immune status assay detects antibody to Varicella Zostervirus. Interpret results in conjunction with clinical history. Positive: Reactive for antibodies to Varicella IgG. If clinically indicated, order Varicella IGM to rule out recent infection. Equivocal: Equivocal for antibodies to Varicella IgG. Suggest repeat testing in 10-14 days. Negative: Non-reactive for antibodies to Varicella IgG.Sera will be held 4-6 weeks if further testing is required. Performed By: #### C BC, ADIFF, ANEU, TSH, ABOG, ANSG ####[place] [id number] [place] [address]#### HBSAG, RUBIS, RPR, VARIS ####[place] [address] CURon 11-28-2017 CUR . MICRO - MicrobiologyPROCEDUR E: Urine Culture [*1] Urine BODY SITE:COLLECTED DATE/TIME: 11/26/2017 12:09 EDT RECEIVED DATE/TIME: 11/26/2017 20:32 EDTSTART DATE/TIME: 11/26/2017 20:32 EDT FREE TEXT SOURCE:FINAL REPORTSFinal Report []Verified Date/Time/Personnel: 11/28/2017 07:40 EDTNo growth at 48 hours.PRELIMINARY REPORTSPreliminar y Report []Verified Date/Time/Personnel: 11/27/2017 08:29 EDTNo growth to datePerforming Locations*1: This test was performed at: [facility], [address] [place] [address], [facility] , [facility] ([place]) Comment on above: Performed By: #### C BC, ADIFF, ANEU, TSH, ABOG, ANSG ####[facility] [place] [address]#### HBSAG, RUBIS, RPR, VARIS ####[place] [address] RPRon 11-28-2017 Reagin Ab RPR Ql (S) Non-Reactive Normal Non-Reactive [facility] ([place]) Comment on above: Result Comment: The RPR test is a non-treponemal assay useful as an aidin the diagnosis of primary and secondary syphilis. Itconverts to positive generally within 2 weeks after theappearance of a lesion. This test is also useful formonitoring response to antibiotic therapy.A positive RPR screening test will be followed by theFTA ABS test.False positive RPR tests may occur in 1) patients withunderlying autoimmune disorders, 2) elderly patients,3) , and 4) other conditions with abnormal serumglobulins. Performed By: #### C BC, ADIFF, ANEU, TSH, ABOG, ANSG ####[place] [address] [place] [id number]#### HBSAG, RUBIS, RPR, VARIS ####[place] [address] RUBISon 11-28-[address] Positive Normal Positive [facility] ([place]) Comment on above: Result Comment: This immune status assay detects IgM and/or IgG antibody to Rubella. Interpret results in conjunction with clinical history. POS: Antibody detected; exposure at undetermined recent or distant time. If clinically indicated, order Rubella IGM to rule out recent infection. NEG: No antibody detected. Performed By: #### C BC, ADIFF, ANEU, TSH, ABOG, ANSG ####[place] [address]#### HBSAG, RUBIS, RPR, VARIS ####[place] [address] HBSAGon 11-27-2017 Hep B Surf Ag Negative Normal Negative [facility] ([place]) Comment on above: Performed By: #### C BC, ADIFF, ANEU, TSH, ABOG, ANSG ####[place] [address]#### HBSAG, RUBIS, RPR, VARIS ####[place] [address] .Auto Diffon 11-26-2017 Ammonia mass conc (P) 0.40 10 3/mcL Normal 0.15-1.00 [facility] ([place] Comment on above: Performed By: #### C BC, ADIFF, ANEU, TSH, ABOG, ANSG ####[place] [address]#### HBSAG, RUBIS, RPR, VARIS ####[place] [address] Basophils Auto #/vol (Bld) 0.00 10 3/mcL Normal 0.00-0.19 [facility] ([place] Comment on above: Performed By: #### C BC, ADIFF, ANEU, TSH, ABOG, ANSG ####[place] [address]#### HBSAG, RUBIS, RPR, VARIS ####[place] [address] Basophils/100 WBC Auto (Bld) 0.3 % Normal 0.0-2.5 [facility] ([place] Comment on above: Performed By: #### C BC, ADIFF, ANEU, TSH, ABOG, ANSG ####[place] [address]#### HBSAG, RUBIS, RPR, VARIS ####[address] [address] Eosinophils Auto #/vol (Bld) 0.00 10 3/mcL Normal 0.00-0.40 [facility] ([place] Comment on above: Performed By: #### C BC, ADIFF, ANEU, TSH, ABOG, ANSG ####[place] [address]#### HBSAG, RUBIS, RPR, VARIS ####[address] [address] Eosinophils/100 WBC Auto (Bld) 0.5 % Normal 0.0-7.0 [facility] ([place]) Comment on above: Performed By: #### C BC, ADIFF, ANEU, TSH, ABOG, ANSG ####[place] [address]#### HBSAG, RUBIS, RPR, VARIS ####[address] [address] Lymphocytes Auto #/vol (Bld) 1.60 10 3/mcL Normal 0.77-3.85 [facility] ([place]) Comment on above: Performed By: #### C BC, ADIFF, ANEU, TSH, ABOG, ANSG ####[place] [address]#### HBSAG, RUBIS, RPR, VARIS ####[address] [address] Lymphocytes/100 WBC Auto (Bld) 21.7 % Normal 10.0-50.0 [facility] ([place] Comment on above: Performed By: #### C BC, ADIFF, ANEU, TSH, ABOG, ANSG ####[place] [address]#### HBSAG, RUBIS, RPR, VARIS ####[address] [address] Monocytes/100 WBC Auto (Bld) 5.4 % Normal 1.7-13.0 [facility] ([place] Comment on above: Performed By: #### C BC, ADIFF, ANEU, TSH, ABOG, ANSG ####[place] [address]#### HBSAG, RUBIS, RPR, VARIS ####[place] [address] Neutrophils/100 WBC Auto (Bld) 72.1 % Normal 37.0-80.0 [facility] ([place] Comment on above: Performed By: #### C BC, ADIFF, ANEU, TSH, ABOG, ANSG ####[place] [address]#### HBSAG, RUBIS, RPR, VARIS ####[place] [address] .NEUABSon 11-26-2017 Neutrophil, Absolute 5.40 10 3/mcL Normal 2.85-6.16 [facility] ([place] Comment on above: Performed By: #### C BC, ADIFF, ANEU, TSH, ABOG, ANSG ####[place] [address]#### HBSAG, RUBIS, RPR, VARIS ####[place] [address] CBCon 11-26-2017 Erythrocyte distribution width Auto Ratio (RBC) 13.5 % Normal 11.5-14.5 [facility] ([place] Comment on above: Performed By: #### C BC, ADIFF, ANEU, TSH, ABOG, ANSG ####[place] [address]#### HBSAG, RUBIS, RPR, VARIS ####[place] [address] Hematocrit Auto Volume Fraction (Bld) 36.1 % Low 37.0-47.0 [facility] ([place] Comment on above: Performed By: #### C BC, ADIFF, ANEU, TSH, ABOG, ANSG ####[place] [address]#### HBSAG, RUBIS, RPR, VARIS ####[place] [address] Hemoglobin mass conc (Bld) 12.8 G/dL Normal 12.0-16.0 [facility] ([place] Comment on above: Performed By: #### C BC, ADIFF, ANEU, TSH, ABOG, ANSG ####[place] [address]#### HBSAG, RUBIS, RPR, VARIS ####[place] [address] MCH Auto Entitic mass (RBC) 31.6 pg High 27.0-31.2 [facility] ([place]) Comment on above: Performed By: #### C BC, ADIFF, ANEU, TSH, ABOG, ANSG ####[place] [address]#### HBSAG, RUBIS, RPR, VARIS ####[place] [address] MCHC Auto mass conc (RBC) 35.5 G/dL Normal 33.0-37.0 [facility] ([place]) Comment on above: Performed By: #### C BC, ADIFF, ANEU, TSH, ABOG, ANSG ####[place] [address]#### HBSAG, RUBIS, RPR, VARIS ####[place] [address] MCV Auto Entitic volume (RBC) 89.0 fL Normal 80.0-94.0 [facility] ([place] Comment on above: Performed By: #### C BC, ADIFF, ANEU, TSH, ABOG, ANSG ####[place] [address]#### HBSAG, RUBIS, RPR, VARIS ####[place] [address] Platelet mean volume Auto Entitic volume (Bld) 8.4 fL Normal 7.4-10.4 [facility] ([place] Comment on above: Performed By: #### C BC, ADIFF, ANEU, TSH, ABOG, ANSG ####[place] [address]#### HBSAG, RUBIS, RPR, VARIS ####[place] [address] Platelets Auto #/vol (Bld) 211 10 3/mcL Normal 130-400 [facility] ([place]) Comment on above: Performed By: #### C BC, ADIFF, ANEU, TSH, ABOG, ANSG ####[place] [address]#### HBSAG, RUBIS, RPR, VARIS ####[place] [address] RBC Auto #/vol (Bld) 4.06 10 6/mcL Low 4.20-5.40 [facility] ([place] Comment on above: Performed By: #### C BC, ADIFF, ANEU, TSH, ABOG, ANSG ####[place] [address]#### HBSAG, RUBIS, RPR, VARIS ####[place] [address] WBC Auto #/vol (Bld) 7.40 10 3/mcL Normal 4.60-10.80 [facility] ([place] Comment on above: Performed By: #### C BC, ADIFF, ANEU, TSH, ABOG, ANSG ####[place] [address]#### HBSAG, RUBIS, RPR, VARIS ####[place] [address] FT3on 11-26-2017 T3 free mass conc 2.6 pg/mL Normal 2.3-4.0 [facility] ([place] Comment on above: Performed By: #### C BC, ADIFF, ANEU, TSH, ABOG, ANSG ####[place] [address]#### HBSAG, RUBIS, RPR, VARIS ####[address] [address] Gel ABOon 11-26-2017 ABO/Rh Interp Positive Invalid Interpretation Code [facility] ([place]) Comment on above: Performed By: #### C BC, ADIFF, ANEU, TSH, ABOG, ANSG ####[address] [address]#### HBSAG, RUBIS, RPR, VARIS ####[address] [address] Gel ABSon 11-26-2017 Antibody Screen Gel Negative Normal [facility] ([place]) Comment on above: Performed By: #### C BC, ADIFF, ANEU, TSH, ABOG, ANSG ####[place] [address]#### HBSAG, RUBIS, RPR, VARIS ####[address] [address] TSHon 11-26-2017 Thyrotropin Qn 1.30 mcIU/mL Normal 0.27-4.20 [facility] ([place]) Comment on above: Performed By: #### C BC, ADIFF, ANEU, TSH, ABOG, ANSG ####[place] [address]#### HBSAG, RUBIS, RPR, VARIS ####[address] [address] Encounters Encounter Date Encounter Type Care Provider Facility Start: 12-24-2024 End: 12-24-[address] QUINN MENDOZA MD Facility:[facility] Start: 12-24-2024 End: 12-24-2024 Patient encounter procedure CARLA LECHUGA [facility] Start: 08-07-2023 ambulatory MAICO GREEN [facility] Start: 06-25-2023 End: 06-25-2023 ambulatory [facility] Work Phone: Start: 06-25-2023 End: 06-25-2023 Discharged Recurring [facility]-Physical Therapy Work Phone: Start: 06-04-2023 ambulatory Quinn Mendoza Facility:[facility] Start: 09-17-2022 End: 09-17-2022 [facility] Start: 01-29-2022 End: 01-29-2022 Patient encounter procedure [facility] Start: 05-28-2018 End: 05-30-2018 Evaluation and management of inpatient DODIE DESOUZA Facility:B Start: 05-22-2018 End: 05-23-2018 Patient encounter procedure DODIE DESOUZA Facility:[facility] Start: 04-17-2018 End: 04-18-2018 Patient encounter procedure DODIE DESOUZA [facility] Start: 03-06-2018 End: 03-07-2018 Patient encounter procedure DODIE DESOUZA Facility[facility] Start: 12-23-2017 End: 12-24-2017 Patient encounter [facility] Start: 11-26-2017 End: 11-27-2017 Patient encounter procedure DODIE DESOUZA Facility:[facility] Payers Date Payer Category Payer Private Health Insurance 8ee [id number] 2022 Self-pay [id number] 2012 Unknown [id number] 1989 Unknown [id number] 2.16.8 [id number] 1989 Unknown [id number] 2.16.8 [id number] 1989 Unknown [id number] 2.16.8 [id number] 1989 Unknown [id number] 2.16.8 [id number] 1989 Unknown [id number] 2.16.8 [id number] 1989 Unknown [id number] 2.16.8 [id number] 1989 Unknown [id number] 2.16.8 [id number] 1989 Unknown [id number] 2.16. [id number] [facility] [id number] Unknown [id number] 2.16.8 [id number] Unknown [id number] 2.16.8 [id number] Social History Date Type Detail Facility Tobacco smoking stat [facility] Unknown if ever smoked [facility] Work Phone: Start: 1990 Sex Assigned At Female [facility] Tobacco smoking status Never smo ked tobacco (finding) [facility] Sexual Orientation [facility] Start: 12-14-2015 Sex Female (finding) [facility] Discharge summary 06-25-2023 Note Date & Type Note Facility 06-25-2023 Discharge summary Note Date/Time June 25, 2023 3:45pm [facility] Physical Therapy [facility] [address] [place] [address]. [address] [place] [address] / REHABILITATION SERVICES DISCHARGE SUMMARY MR#: [id number] Acct: [id number] Name: NEDRA MAJANO Rep #: [id number] : 1990 32 From: Jeni Monique DPT, OCS, CSCS Referring Dr.: Dr. Quinn Mendoza MD Status: REG RCR Insurance: [facility] SELF PAY INSURANCE Discharge Summary D/C summary: It has been my pleasure to treat NEDRA MAJANO referred by Dr. Quinn Mendoza MD, with the diagnosis of L biceps tendonitis. for a total of 5 visit(s). Discharge Date: 06/25/23 Please see the following information for a summary of their discharge status. Subjective Subjective: Doing well took a week for pain to go away after plyo pushups but getting back there now and progressing db exercises slower. Not much pain lately. Pain L shoulder: Pain Intensity (Out of 10): 0 Overall Improvement % Improvement: 85 Objective Objective/Function: Full aROM B shoulders, still some mild tenderness L supraspinatus but much better. No pain with AROM. strength is symmetrical in neutral position, slightly painful after a few attempts with er but otherwise er, ir, flex, abd are all OK Goals Goal 1:: Full aROM and flexion, er resistance without pain L shoulder Goal Progress: Goal Met Goal 2:: I appropriate HEP to limit future problems Goal Progress: Goal Met Goal 3:: 5 days without noticing pain in L shoulder Goal Progress: Progressing Goal 4:: qucikdash score 11 Goal Progress: Goal Met Goal 5:: Pt report 99% back to normal Goal Progress: Progressing Plan Plan: d/c to HEP D/C Information Discharge Comments: Pt to continue via HEP. d/c sentence: If there are questions or concerns regarding this patient's physical therapy, please feel free to call me at [phone]. Thank you for the referral of thispatient. Sincerely, Jeni Monique DPT, MYLENE, CSCS Balance/Gait/Functional tests Balance/Special Test Scores Quick DASH Score: 6.8175 Improvement % Improvement: 85 <Electronically signed by MYLENE Farris DPT, CSCS> 06/25/23 1544 CC: Dr. Quinn Mendoza MD ~ EBG Signed [facility] Work Phone: Evaluation + Plan note Note Date & Type Note Facility Evaluation + Plan note No data available for this section [facility] Evaluation note Note Date & Type Note Facility Evaluation note No assessment information availa ble [facility] Work Phone: Hospital Discharge instructions Note Date & Type Note Facility Hospital Discharge instructions No data available for this section [facility] Progress note Note Date & Type Note Facility Progress note No data available for this section [facility] Summary Purpose Family History No Family History Records FoundNo Family History Records FoundNo Family History Records FoundNo Family History Records Found No data available for this section No Family History Records Found Advance Directives No Advanced Directives Records FoundNo Advanced Directives Records FoundNo Advanced Directives Records FoundNo Advanced Directives Records FoundNo Advanced Directives Records Found Chief Complaint and Reason for Visit Chief Complaint L SHOULDER RX HERE ( REQUEST LEANDRA OR JENI) Additional Source Comments INFORMATION SOURCE (unrecogn ized section and content) DATE CREATED AUTHOR 06/05/2018 [facility] ([place]) DATE CREATED AUTHOR AUTHOR'S ORGANIZ ATION 01/26/2022 [facility] DATE CREATED AUTHOR AUTHOR'S ORGANIZ ATION 06/06/2023 [facility] DATE CREATED AUTHOR AUTHOR'S ORGANIZ ATION 08/08/2023 [facility] DATE CREATED AUTHOR AUTHOR'S ORGANIZ ATION 12/26/2024 [facility] Goals (unrecognized section and content) Goals may be documented in a n alternate sectionGoals may be documented in an alternate sectionGoals may be documented in an alternate sectionGoals may be documented in an alternate section No data available for this section Care Teams (unrecognized sec tion and content) Team Status: Active Member Role Status Dates Dr. Quinn Mendoza MD Family Provider Active Dr. Quinn Mendoza MD Primary Care Provider Active Team Status: Inactive Member Role Status Dates Dr. Quinn Mendoza MD Primary Care Provi anil, Attending Provider, Referring Provider Active FOR RECORDS PERTAINING TO PATIENTS WHO ARE OR HAVE BEEN ENROLLED IN A CHEMICAL DEPENDENCY/SUBSTANCEABUSE PROGRAM, SOME INFORMATION MAY BE OMITTED. This clinical summary was aggregated from multiple sources. Caution should be exercised in using it in the provision of clinical care. This summary normalizes information from multiple sources, and as a consequence, information in this document may materially change the coding, format and clinical context of patient data. In addition, data may be omitted in some cases. CLINICAL DECISIONS SHOULD BE BASED ON THE PRIMARY CLINICAL RECORDS. [facility]. provides no warranty or guarantee of the accuracy or completeness of information in this document.
[2025-02-12 07:35] LABS: AST(SGOT) 21 U/L (<=31); Alanine Aminotransfer ALT/SGPT 9 U/L (<=34); Albumin, Serum 4.5 g/dL (3.5-5.0); Alkaline Phosphatase 83 U/L (35-104); Anion Gap 12 (5-15); BUN 10 mg/dL (4-19); BUN/Creat Ratio 14.1 RATIO (10-20); Calcium,Total 9.2 mg/dL (7.6-11.0); Carbon Dioxide 22.8 mmol/L (21.0-32.0); Chloride 103 mmol/L (98-108); Cholesterol 160 mg/dL (<=200); Globulin 2.6 g/dL (2.2-4.2); Glucose 89 mg/dL (70-99); Low Density Lipoprotein Calc. 74 mg/dL; Potassium 3.9 mmol/L (3.3-5.1); Triglycerides 78 mg/dL; Very Low Density Lipoprotein 16 mg/dL (5-40); cholesterol:hdl ratio screen 2.29
== END | disposition home or self-care (01) ==
LOC: LAB 06:04
PROVIDERS: PCP Family Medicine
DX: Z13.1 Encounter for screening for diabetes mellitus (principal); Z13.220 Encounter for screening for lipoid disorders
CPT/HCPCS: 36415; 80053; 80061; 83036